=== PATIENT | female | born 1985 | race Caucasian/White ===

== ENCOUNTER 2017-11-16 15:19 | Outpatient (CLI) | payer BC | END 2017-11-16 15:56 | disposition home or self-care (01) | LOC: HPC 15:19 | DX: I27.20 Pulmonary hypertension, unspecified (principal); J45.909 Unspecified asthma, uncomplicated; I63.9 Cerebral infarction, unspecified; K80.20 Calculus of gallbladder without cholecystitis without obstruction | CPT/HCPCS: Z7500 ==